=== PATIENT | male | born 1955 | race Caucasian/White ===

== ENCOUNTER 2016-03-23 06:12 | Day surgery (SDC) | payer OTHER ==
[2016-03-22 11:49] VITALS: BMI 39.7
[~2016-03-23 06:12] MED LIST: ALPRAZolam 0.25 MG TAB PO PRN; ASPIRIN 325 MG TAB PO ONE; SODIUM CHLORIDE 0.9% 1,000 ML in EMPTY BAG 1 BAG IV ONE
[2016-03-23 06:49] LABS: Basophils # (A) 0.1 k/uL (0-0.2); Basophils % (A) 1 %; CH 31.4; CHCM 34.6; Eosinophils # (A) 0.3 k/uL (0-0.7); Eosinophils % (A) 6 %; HCT 45.1 % (39.0-53.0); HGB 15.2 gm/dL (13.0-17.5); Luc # (Auto) 0.09; Luc % (Auto) 2; Lymphocytes # (A) 1.1 k/uL (1.0-4.8); Lymphocytes % (A) 20 %; MCH 30.8 pg (25.0-35.0); MCHC 33.8 g/dL (31.0-37.0); MCV 91.2 fL (80.0-100.0); Mean Platelet Volume 7.6; Monocytes # (A) 0.5 k/uL (0-1.0); Monocytes % (A) 8 %; Neutrophils # (A) 3.5 k/uL (1.3-7.7); Neutrophils % (A) 63 %; RBC 4.95 m/uL (4.30-5.90); RDW 14.1 % (11.5-15.5); WBC 5.5 k/uL (3.8-10.6); WBC (Perox) 5.64
[2016-03-23 06:58] LABS: Anion Gap 12 mmol/L; Blood Urea Nitrogen 14 mg/dL (9-20); Calcium 8.8 mg/dL (8.4-10.2); Carbon Dioxide 26 mmol/L (22-30); Chloride 107 mmol/L (98-107); Glucose 129 mg/dL (74-99); Non-African American GFR(MDRD) >60 (>60 ml/min/1.73 sqM); Potassium 4.6 mmol/L (3.5-5.1); Sodium 145 mmol/L (137-145)
[2016-03-23] MEDS ORDERED: MIDAZOLAM 2 MG/2 ML VIAL ONE (07:19)
[2016-03-23] MEDS ORDERED: SODIUM CHLORIDE 0.9% (PF) 10 ML VIAL ONE (07:19)
[2016-03-23] MEDS ORDERED: diphenhydrAMINE 50 MG/ML 1 ML VIAL ONE (07:19)
[2016-03-23] MEDS ORDERED: VERAPAMIL 2.5 MG/ML 2 ML AMP ONE (07:19)
[2016-03-23] MEDS ORDERED: diphenhydrAMINE 50 MG/ML 1 ML VIAL IVP ONE (07:27)
[2016-03-23] MEDS ORDERED: MIDAZOLAM 2 MG/2 ML VIAL IVP ONE (07:28)
[2016-03-23] MEDS ORDERED: LIDOCAINE 2% INJ 20 MG/ML SQ ONE (07:31)
[2016-03-23] MEDS: VERAPAMIL SYRINGE (5 MG/10 ML) INTRAARTER ONE ×2 (07:33→08:38)
[2016-03-23] MEDS ORDERED: HEPARIN SODIUM 1,000 UNIT/ML VIAL ONE (07:33)
[2016-03-23] MEDS ORDERED: HEPARIN SODIUM 1,000 UNIT/ML VIAL IV ONE (07:34)
[2016-03-23] MEDS ORDERED: BIVALIRUDIN BOLUS 250 MG/50 ML IV ONE (07:53)
[2016-03-23] MEDS ORDERED: BIVALIRUDIN 250 MG in SODIUM CHLORIDE 0.9% 50 ML IV ONE ×2 (07:54→08:24)
[2016-03-23] MEDS ORDERED: CLOPIDOGREL 75 MG TAB ONE ×2 (08:12→08:13)
[2016-03-23] MEDS: NITROGLYCERIN 1000MCG/10ML SYRINGE INTRACORON ONE ×2 (08:13→08:35)
[2016-03-23] MEDS ORDERED: CLOPIDOGREL 75 MG TAB PO ONE (08:28)
[2016-03-23] MEDS ORDERED: IOHEXOL 350 MG/ML 100 ML BOTTLE INJ ONE (08:41)
[2016-03-23] MEDS ORDERED: NITROGLYCERIN SL TABS 0.4 MG TAB SUBLINGUAL PRN (08:44)
[2016-03-23] MEDS ORDERED: RX INFO: IV CONTRAST WAS GIVEN 1 EACH MISC MISCELLANE PRN (08:44)
[2016-03-23] MEDS ORDERED: ATROPINE SULFATE 0.1 MG/ML 10ML SYRINGE IV PRN (08:44)
[2016-03-23] MEDS ORDERED: MAG HYDROX/AL HYDROX/SIMETH 30 ML CUP PO PRN (08:44)
--- NOTE | 2016-03-23 10:26 | CC ---
DATE OF SERVICE: 03/23/2016 PROCEDURE: Left heart catheterization and coronary angiography. Performed by Dr. Shalini Otero. CLINICAL INFORMATION: Mr. Rafael Lord is a 60-year-old obese gentleman with history of hypertension, hypercholesterolemia and known CAD, previous circumflex PCI performed in 2005. At that time he had moderate distal RCA disease. He was doing well on medical therapy but came in for a stress test, which revealed inferolateral ischemia and significant ventricular ectopy on the treadmill. He was therefore advised cardiac catheterization. Risks, benefits, options, rationale were discussed at length with the patient. PROCEDURE NOTE: Under local anesthesia and strict aseptic precautions, a 6 Grenadian introducer was placed in the right radial artery. Using an Ultima 2 catheter, I performed selective coronary angiography of the left system. A JR4 catheter was used to perform selective coronary angiography of the RCA. I checked LV pressures with a pigtail catheter, but did not perform an LV gram. The circumflex that was stented in 2005 was widely patent with no more than 30% stenosis. There was some progression of disease in the circumflex PLV branch beyond the circumflex marginal. This is almost a codominant system. Technically though the right coronary seems to be a dominant vessel. I then proceeded to perform intervention in the same setting. CORONARY ANGIOGRAPHY FINDINGS: HEMODYNAMICS: The left ventricular end-diastolic pressure was about 12 mmHg and there was no gradient across aortic valve. Left ventriculogram was not performed. CORONARY ANGIOGRAPHIC FINDINGS: RIGHT CORONARY ARTERY: It was technically a dominant vessel that has no significant disease in the proximal portion, in the distal aspect before bifurcation there is a long, tubular 80% stenosis after which the vessel bifurcates into PDA and PLV. The distal RCA lesion is quite significant and the PLV is a smaller vessel, has no significant disease, but the PDA also has a 70% to 80% stenosis. This is best seen in the caudal projection. The RCA is a dominant vessel. LEFT MAIN CORONARY ARTERY: A short, patent, disease-free vessel that bifurcates into LAD and circumflex. LEFT ANTERIOR DESCENDING CORONARY ARTERY: A good caliber vessel extends along the anterior wall, gives off septal and diagonal branches, runs all the way to the apex and curves over the apex to supply the inferoapical lateral portion of the left ventricle. There is no significant disease in the RCA. LEFT POSTERIOR CIRCUMFLEX CORONARY ARTERY: Technically, a nondominant, yet good distribution vessel; gives off a large obtuse marginal, then there is stented segment which is widely patent. After the obtuse marginal, there is mild diffuse disease in the circumflex up to 30% to 35% but the stented segment is widely patent and it bifurcates distally into two small branches. The stented segment in the circumflex is widely patent. LEFT VENTRICULOGRAM: This was not performed. FINAL IMPRESSION: 1. This patient has widely patent circumflex at the site of previous stenting. The right coronary artery has a significant disease in the distal aspect of 80% and also the PDA branch has 80% stenosis beyond the bifurcation. 2. Left ventriculogram was not performed and left ventricular pressures are normal. RECOMMENDATION: I recommended intervention of the RCA and proceeded to perform this in the same setting.
--- NOTE | 2016-03-23 10:31 | PTCA ---
DATE OF SERVICE: PROCEDURE: PTCA and stenting of distal RCA and PDA branch of RCA with drug-eluting stents. Performed by Dr. Shalini Otero. PROCEDURE NOTE: Existing 6 Belizean introducer in the right radial artery was used to perform the procedure. I used a KR catheter to cannulate the RCA, BMW wire was used to cross the lesion. Predilatation of the distal RCA was performed using a 15 mm long, 2.5 caliber Trek balloon. This area was stented with an 18 mm long, 3.0 caliber Xience stent with excellent result. I then noted that the PDA lesion was quite significant, almost up to 90%. I repositioned the wire in the distal aspect of the PDA, predilated it with a 2.5 caliber, 12 mm long Trek balloon and then deployed a 2.5 caliber, 12 mm long Xience stent in the PDA vessel. Excellent angiographic result was achieved without complication. Patient did not have much chest discomfort, but mild ST elevation in the inferior leads. He received Angiomax bolus and infusion as per protocol. He also received 600 mg of Plavix. Excellent angiographic result was achieved without complication. TR band was applied as per protocol with a good saturation of the fingers of the right hand and patient was sent to the room in stable condition and results were discussed with the patient and his . Excellent angiographic result without complication was noted. I expect the patient will be discharged tomorrow.
--- NOTE | 2016-03-23 10:34 | LTR ---
March 23, 2016 RE: Rafael Lord Dear Dr. Burr; Thank you for the opportunity to participate in the care of Mr. Lord. I am pleased to report to you that he had an excellent angiographic result. I expect that he will be discharged later on today or early tomorrow if he remains stable. Thank you for your referral and please call for questions. With kindest regards. Sincerely yours, TIA LAUREANO MD
[2016-03-23] MEDS: ASPIRIN 81 MG CHEW PO SCH (11:12)
[2016-03-23] MEDS: amLODIPine 5 MG TAB PO SCH ×2 (11:12→20:57)
[2016-03-23] MEDS: SODIUM CHLORIDE 0.9% 1,000 ML IV SCH ×2 (11:12→20:57)
[2016-03-23] MEDS: LISINOPRIL 20 MG TAB PO SCH (11:13)
[2016-03-23] MEDS: ATENOLOL 50 MG TAB PO SCH ×2 (11:13→20:57)
[2016-03-23] MEDS ORDERED: ZOLPIDEM 5 MG TAB PO PRN (21:00)
[2016-03-23] MEDS ORDERED: ATORVASTATIN 80 MG TAB PO SCH (21:00)
[2016-03-24 06:28] LABS: Basophils # (A) 0.1 k/uL (0-0.2); Basophils % (A) 1 %; CH 31.3; CHCM 34.2; Eosinophils # (A) 0.3 k/uL (0-0.7); Eosinophils % (A) 5 %; HCT 45.1 % (39.0-53.0); HDW 2.84; HGB 14.6 gm/dL (13.0-17.5); Luc # (Auto) 0.11; Luc % (Auto) 2; Lymphocytes % (A) 18 %; MCH 29.8 pg (25.0-35.0); MCHC 32.4 g/dL (31.0-37.0); Mean Platelet Volume 7.6; Monocytes # (A) 0.4 k/uL (0-1.0); Monocytes % (A) 7 %; Neutrophils % (A) 67 %; RBC 4.91 m/uL (4.30-5.90); RDW 14.1 % (11.5-15.5); WBC 5.9 k/uL (3.8-10.6); WBC (Perox) 5.93
[2016-03-24 06:51] LABS: Anion Gap 12 mmol/L; Blood Urea Nitrogen 14 mg/dL (9-20); Carbon Dioxide 28 mmol/L (22-30); Chloride 103 mmol/L (98-107); Glucose 127 mg/dL (74-99); Non-African American GFR(MDRD) >60 (>60 ml/min/1.73 sqM); Potassium 3.9 mmol/L (3.5-5.1); Sodium 143 mmol/L (137-145)
[2016-03-24 08:17] VITALS: BP 149/73; PULSE 73; RESP 16; TEMP 97.3
[2016-03-24] MEDS: ATENOLOL 50 MG TAB PO SCH (08:51)
[2016-03-24] MEDS: LISINOPRIL 20 MG TAB PO SCH (08:52)
[2016-03-24] MEDS: ASPIRIN 81 MG CHEW PO SCH (08:52)
[2016-03-24] MEDS: amLODIPine 5 MG TAB PO SCH (08:52)
--- NOTE | 2016-03-24 08:58 | DS ---
DATE OF ADMISSION: 03/23/2016 DATE OF DISCHARGE: 03/24/2016 DIAGNOSIS: Unstable angina. PROCEDURES PERFORMED: Left heart catheterization and PTCA and stenting of distal RCA and PDA branch of RCA with drug-eluting stents. Mr. Lord was brought in electively for a cardiac cath and possible PCI for abnormal stress test. PTCA and stenting of distal RCA and proximal portion of the PDA branch of RCA were performed. Two drug-eluting stents were deployed. His previously stented mid circumflex was widely patent. His postprocedure course was uneventful. His labs and EKG were unremarkable. Blood pressure was 120/70, pulse rate 70 per minute. The right radial cath site was clean and dry with a good pulse. S1, S2 are heard normally. Lungs are clear. Abdomen and lower extremity exam was unchanged. EKG was unremarkable. Discharge instructions regarding activity, diet, medications were given and patient will be discharged today if he remains stable.
[2016-03-24] MEDS ORDERED: CLOPIDOGREL 75 MG TAB PO SCH (09:00)
== END 2016-03-24 09:59 | disposition home or self-care (01) ==
LOC: CATHCVL 06:12 → 6SEL 08:38 → CATHCVL 03-24 09:59
PROVIDERS: ATTEND Internal Medicine Interventional Cardiology
DX: I25.110 Atherosclerotic heart disease of native coronary artery with unstable angina pectoris (principal); R94.39 Abnormal result of other cardiovascular function study; Z95.5 Presence of coronary angioplasty implant and graft; E78.00 Pure hypercholesterolemia, unspecified; E78.5 Hyperlipidemia, unspecified; I10 Essential (primary) hypertension; I51.7 Cardiomegaly; I08.1 Rheumatic disorders of both mitral and tricuspid valves; Z79.82 Long term (current) use of aspirin; Z79.899 Other long term (current) drug therapy; Z87.891 Personal history of nicotine dependence
CPT/HCPCS: 93458; 80048 ×2; 85025 ×2; C9600; C9601; C1769; C1887; C1725 ×2; C1874; C1894; J2001; J2250; J1200; Q9967; J1644; J0583

== ENCOUNTER → 2016-05-18 | Outpatient (CLI) | payer OTHER ==
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
== END | disposition home or self-care (01) ==
LOC: RADXRMAIN 17:17
PROVIDERS: ATTEND Emergency Medicine
DX: S80.12XA Contusion of left lower leg, initial encounter (principal)

== ENCOUNTER → 2016-05-24 | Outpatient (CLI) | payer OTHER ==
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
== END | disposition home or self-care (01) ==
LOC: RADUSMAIN 16:43
PROVIDERS: ATTEND Family Medicine
DX: M71.22 Synovial cyst of popliteal space [Baker], left knee (principal); S89.92XA Unspecified injury of left lower leg, initial encounter

== ENCOUNTER → 2018-10-25 | Outpatient (CLI) | payer OTHER ==
--- NOTE | 2018-10-25 09:27 | US ---
EXAMINATION TYPE: US liver DATE OF EXAM: 10/25/2018 COMPARISON: CT, US 2016 CLINICAL HISTORY: N28.9 disorder of kidney. EXAM MEASUREMENTS: Liver Length: 18.5 cm Gallbladder Wall: Surgically absent cm CBD: 0.4 cm Right Kidney: 12.5 x 5.9 x 5.2 cm Pancreas: Obscured by bowel gas Liver: Partially obscured by overlying bowel gas. There is increased echogenicity of the hepatic par enchyma with diminished visualization of the portal triads most commonly relating to hepatic steatosi s and limiting evaluation for underlying hepatic masses. Gallbladder: Surgically absent Evidence for sonographic Rockwell's sign: No CBD: wnl Right Kidney: Mid/Lower pole cyst = 1.9 x 1.6 x 1.3 cm IMPRESSION: 1. Sonographic findings most commonly related to hepatic steatosis appearing overall moderate in degr ee. Correlate with liver function tests. 2. Simple appearing 1.9 cm right renal cyst is seen.
== END ==
LOC: RADUSWWP 07:10
PROVIDERS: ATTEND Family Medicine
DX: N28.1 Cyst of kidney, acquired (principal)
CPT/HCPCS: 76705

== ENCOUNTER 2019-01-10 16:10 | Emergency (ER) | payer OTHER ==
[2019-01-10 16:19] VITALS: PULSE 70; RESP 18; TEMP 98.3
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
[2019-01-10] MEDS ORDERED: ACET/COD 300 MG/30 MG STARTER PACK 6 TAB BTL PO STA (18:39)
[2019-01-10] MEDS ORDERED: ONDANSETRON 4 MG ODT STARTER PACK 2 TAB BTL PO STA (18:39)
[2019-01-10] MEDS ORDERED: ONDANSETRON ODT 4 MG TAB PO STA (18:39)
[2019-01-10] MEDS ORDERED: Acetaminophen-Codeine 300-30mg TAB PO STA (18:39)
[2019-01-10] MEDS ORDERED: IBUPROFEN 600 MG TAB PO STA (18:39)
[2019-01-10 18:53] VITALS: BP 140/88
== END 2019-01-10 18:49 | disposition home or self-care (01) ==
LOC: EC 16:10
DX: S06.0X0A Concussion without loss of consciousness, initial encounter (principal); S00.12XA Contusion of left eyelid and periocular area, initial encounter; I10 Essential (primary) hypertension; G47.30 Sleep apnea, unspecified; Z87.891 Personal history of nicotine dependence; Z79.899 Other long term (current) drug therapy; Z99.89 Dependence on other enabling machines and devices; V48.5XXA Car driver injured in noncollision transport accident in traffic accident, initial encounter; Y92.410 Unspecified street and highway as the place of occurrence of the external cause; Y99.0 Civilian activity done for income or pay
CPT/HCPCS: 72125; 70486; 70450; 99284; S0119

== ENCOUNTER → 2019-01-11 | Outpatient (CLI) | payer OTHER ==
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
== END | disposition home or self-care (01) ==
LOC: RADXRMAIN 13:53
PROVIDERS: ATTEND Emergency Medicine
DX: M51.37 Other intervertebral disc degeneration, lumbosacral region (principal); M51.36 Other intervertebral disc degeneration, lumbar region; M51.34 Other intervertebral disc degeneration, thoracic region; M41.86 Other forms of scoliosis, lumbar region; M16.0 Bilateral primary osteoarthritis of hip
CPT/HCPCS: 72072; 72100; 72170

== ENCOUNTER → 2019-01-22 | Outpatient (CLI) | payer OTHER ==
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
== END | disposition home or self-care (01) ==
LOC: RADUSWWP 12:15
PROVIDERS: ATTEND Emergency Medicine
DX: S20.20XD Contusion of thorax, unspecified, subsequent encounter (principal); M79.662 Pain in left lower leg

== ENCOUNTER 2020-02-06 15:39 | Emergency (ER) | payer OTHER ==
[2020-02-06 15:51] VITALS: RESP 18; TEMP 97.9
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
[2020-02-06 17:20] VITALS: BP 148/84; PULSE 82
== END 2020-02-06 17:20 | disposition home or self-care (01) ==
LOC: EC 15:39
DX: M79.602 Pain in left arm (principal); I10 Essential (primary) hypertension; E78.5 Hyperlipidemia, unspecified; K21.9 Gastro-esophageal reflux disease without esophagitis; G47.30 Sleep apnea, unspecified; Z79.84 Long term (current) use of oral hypoglycemic drugs; Z79.899 Other long term (current) drug therapy; Z99.89 Dependence on other enabling machines and devices
CPT/HCPCS: 72070; 99283

== ENCOUNTER → 2021-09-03 | Outpatient (CLI) | payer MEDICARE ==
--- NOTE | 2021-09-03 14:03 | US ---
EXAMINATION TYPE: US venous doppler duplex LE RT DATE OF EXAM: 09/03/2021 1:50 PM COMPARISON: NONE CLINICAL HISTORY: M79.604 Pain right leg. Right leg pain SIDE PERFORMED: Right TECHNIQUE: The lower extremity deep venous system is examined utilizing real time linear array sonog angel with graded compression, doppler sonography and color-flow sonography. VESSELS IMAGED: Common Femoral Vein Deep Femoral Vein Greater Saphenous Vein * Femoral Vein Popliteal Vein Small Saphenous Vein * Proximal Calf Veins (* superficial vessels) Right Leg: Appears negative for DVT Grayscale, color doppler, spectral doppler imaging performed of the deep veins of the lower extremiti es. There is normal flow, compressibility, vascular waveforms. Scattered streaky subcutaneous changes edema is present. IMPRESSION: 1. No evidence of DVT of the right lower extremity. 2. Right lower extremity edema.
== END | disposition home or self-care (01) ==
LOC: RADUSWWP 13:22
PROVIDERS: ATTEND Family Medicine
DX: R22.41 Localized swelling, mass and lump, right lower limb (principal)

== ENCOUNTER → 2022-09-28 | Outpatient (CLI) | payer MEDICARE ==
--- NOTE | 2022-09-28 16:00 | US ---
EXAMINATION TYPE: US pelvic limited DATE OF EXAM: 09/28/2022 COMPARISON: NONE CLINICAL INDICATION: Male, 67 years old with history of N40.0 BENIGN PROSTATIC HYPERPLASIA; BPH frequ ent urination TECHNIQUE: Multiple sonographic images of the bladder obtained before and after voiding. FINDINGS: No gross abnormality of the initially distended bladder. Pre Void: 11.0 x 7.2 x 7.7 cm Volume 426.09 ml Post Void: 8.9 x 4.4 x 6.4 cm Volume 130.82 ml IMPRESSION: Increased post void bladder volume of 131 mL compatible with urinary retention.
== END | disposition home or self-care (01) ==
LOC: RADUSWWP 09:57
PROVIDERS: ATTEND Family Medicine
DX: N40.1 Benign prostatic hyperplasia with lower urinary tract symptoms (principal)
CPT/HCPCS: 76857

== ENCOUNTER 2023-09-08 10:40 | Emergency (ER) | payer MEDICARE ==
[2023-09-08 10:47] VITALS: RESP 18; TEMP 97.3
--- NOTE | 2023-09-08 11:44 | ED ---
General Adult HPI - General Chief complaint: Dizziness Stated complaint: dizzy/nauseous/sweating Time Seen by Provider: 09/08/23 11:01 Source: patient Mode of arrival: wheelchair Limitations: no limitations - History of Present Illness Initial comments: 68-year-old male presents to the emergency department reporting dizziness. States his symptoms were sudden onset around 2030 this morning. He moved his head to the side and had rapid onset of room spinning sensation. He felt nauseated and started sweating. Patient states he tried to lay down and this made his symptoms minimally better. He does report to a history of vertigo but states this does feel different for him. He has a history of a head injury with possible brain bleed for which he was medically followed for a while until it was determined that the patient was stable. Patient denies any head injury. No hearing changes. No chest pain or difficulty breathing. Denies any unilateral numbness or weakness. Symptoms are gone at this time. No other alleviating, precipitating or modifying factors - Related Data Home Medications Medication Instructions Recorded Confirmed atenoloL [Tenormin] 50 mg PO BID 09/07/15 09/08/23 amLODIPine BESYLATE [Norvasc] 5 mg PO BID 03/22/16 09/08/23 Atorvastatin [Lipitor] 40 mg PO HS 02/06/20 09/08/23 Fosinopril Sodium [Monopril] 20 mg PO DAILY 02/06/20 09/08/23 Omeprazole 20 mg PO DAILY 02/06/20 09/08/23 metFORMIN HCL [Glucophage] 500 mg PO DAILY 02/06/20 09/08/23 Tamsulosin [Flomax] 0.4 mg PO HS 09/08/23 09/08/23 Previous Rx's Medication Instructions Recorded Aspirin 81 mg PO HS #90 03/24/16 Allergies Allergy/AdvReac Type Severity Reaction Status Date / Time No Known Allergies Allergy Verified 09/08/23 13:22 Review of Systems ROS Statement: Those systems with pertinent positive or pertinent negative responses have been documented in the HPI. ROS Other: All systems not noted in ROS Statement are negative. Past Medical History Past Medical History: GERD/Reflux, Hyperlipidemia, Hypertension, Prostate Di sorder, Sleep Apnea/CPAP/BIPAP Additional Past Medical History / Comment(s): hx kidney stones, pancreatitis-had cholecystectomy, "borderline diabetic"- just started checking blood sugars, BPH. History of Any Multi-Drug Resistant Organisms: None Reported Past Surgical History: Cholecystectomy, Heart Catheterization With Stent, Tonsillectomy Additional Past Surgical History / Comment(s): 03/23/16 PCI with stent to RCA and PDA. Other surgical hx: Cardiac cath with stent to LCX 2005, [employer] RE MOVED LT KNEE Past Anesthesia/Blood Transfusion Reactions: No Reported Reaction Date of Last Stent Placement:: 03/23/16 Past Psychological History: No Psychological Hx Reported Smoking Status: Never smoker Past Alcohol Use History: None Reported Past Drug Use History: Marijuana - Past Family History Father Family Medical History: Cancer Additional Family Medical History / Comment(s): Father had a MS in his late 60's. He of multiple myeloma at the age of 73yrs. Mother Family Medical History: No Reported History Additional Family Medical History / Comment(s): Mother is 79 or 80 yrs old. General Exam Limitations: no limitations General appearance: alert, in no apparent distress Head exam: Present: atraumatic, normocephalic, normal inspection Eye exam: Present: normal appearance, PERRL, EOMI. Absent: scleral icterus, conjunctival injection, periorbital swelling ENT exam: Present: normal exam, mucous membranes moist Neck exam: Present: normal inspection. Absent: tenderness, meningismus, lymphadenopathy Respiratory exam: Present: normal lung sounds bilaterally. Absent: respiratory distress, wheezes, rales, rhonchi, stridor Cardiovascular Exam: Present: regular rate, normal rhythm, normal heart sounds. Absent: systolic murmur, diastolic murmur, rubs, gallop, clicks GI/Abdominal exam: Present: soft, normal bowel sounds. Absent: distended, tenderness, guarding, rebound, rigid Extremities exam: Present: normal inspection, full ROM, normal capillary refill. Absent: tenderness, pedal edema, joint swelling, calf tenderness Back exam: Present: normal inspection Neurological exam: Present: alert, oriented X3, CN II-XII intact Psychiatric exam: Present: normal affect, normal mood Skin exam: Present: warm, dry, intact, normal color. Absent: rash Course Vital Signs 09/08/23 09/08/23 10:43 15:11 Temperature 97.3 F L Pulse Rate 59 L 65 Respiratory 18 18 Rate Blood Pressure 140/89 126/78 O2 Sat by Pulse 96 98 Oximetry Medical Decision Making - Medical Decision Making Was pt. sent in by a medical professional or institution (, PA, SALESFORCE ADMINISTRATOR, urgent care, hospital, or fdc...) When possible be specific @ -No Did you speak to anyone other than the patient for history (EMS, parent, family, police, friend...)? What history was obtained from this source @ -Spoke with for history Did you review nursing and triage notes (agree or disagree)? Why? @ -I reviewed and agree with nursing and triage notes Were old charts reviewed (outside hosp., previous admission, EMS record, old EKG, old radiological studies, urgent care reports/EKG's, fdc records)? Report findings @ -No old charts were reviewed Differential Diagnosis (chest pain, altered mental status, abdominal pain women, abdominal pain men, vaginal bleeding, weakness, fever, dyspnea, syncope, headache, dizziness, GI bleed, back pain, seizure, CVA, palpatations, mental health, musculoskeletal)? @ -CVA, vertigo, brain bleed, MS EKG interpreted by me (3pts min.). @ -yes and demonstrates sinus bradycardia with a rate of 54. TX interval 206. QRS 124. QTC of 425. No acute ST segment elevations or depressions X-rays interpreted by me (1pt min.). @ -None done CT interpreted by me (1pt min.). @ -Yes and demonstrates no acute process U/S interpreted by me (1pt. min.). @ -None done What testing was considered but not performed or refused? (CT, X-rays, U/S, labs)? Why? @ -None What meds were considered but not given or refused? Why? @ -Meclizine however patient is asymptomatic at this time Did you discuss the management of the patient with other professionals (professionals i.e. , PA, SALESFORCE ADMINISTRATOR, lab, RT, psych nurse, social media executive, risk manager, teacher, casino surveillance officer, clinical case manager)? Give summary @ -No Was smoking cessation discussed for >3mins.? @ -No Was critical care preformed (if so, how long)? @ -No Were there social determinants of health that impacted care today? How? (H omelessness, low income, unemployed, alcoholism, drug addiction, transportation, low edu. Level, literacy, decrease access to med. care, nursing home, rehab)? @ -No Was there de-escalation of care discussed even if they declined (Discuss DNR or withdrawal of care, Hospice)? DNR status @ -No What co-morbidities impacted this encounter? (DM, HTN, Smoking, COPD, CAD, Cancer, CVA, ARF, Chemo, Hep., AIDS, mental health diagnosis, sleep apnea, morbid obesity)? @ -Head injury with possible brain bleed Was patient admitted / discharged? Hospital course, mention meds given and route, prescriptions, significant lab abnormalities, going to OR and other pertinent info. @ -Upon arrival patient seen and evaluated in room 9. Thorough history and physical exam was performed. Patient placed on continuous pulse ox and cardiac monitoring. Twelve-lead EKG is obtained. Laboratory studies are conducted. CT of the head was performed. Upon return the results are discussed with the patient. I did request that a second troponin be completed which was also negative. Patient wants to go home at this time as he is asymptomatic. I discussed the diagnosis, differential and treatment options. At this time the patient be discharged home. Instructed to follow-up with his primary care doctor. Return for any new or worsening symptoms. Patient agreeable to plan was discharged in stable condition Undiagnosed new problem with uncertain prognosis? @ -Yes Drug Therapy requiring intensive monitoring for toxicity (Heparin, Nitro, Insulin, Cardizem)? @ -No Were any procedures done? @ -No Diagnosis/symptom? @ -Acute vertigo Acute, or Chronic, or Acute on Chronic? @ -Acute Uncomplicated (without systemic symptoms) or Complicated (systemic symptoms)? @ -Complicated Side effects of treatment? @ -No Exacerbation, Progression, or Severe Exacerbation? @ -No Poses a threat to life or bodily function? How? (Chest pain, USA, MS, pneumonia, PE, COPD, DKA, ARF, appy, cholecystitis, CVA, Diverticulitis, Homicidal, Suicidal, threat to staff... and all critical care pts) @ -No - Lab Data Result diagrams: 09/08/23 12:00 09/08/23 12:00 Lab Results 09/08/23 09/08/23 09/08/23 Range/Units 12:00 12:00 12:00 WBC 6.2 (3.8-10.6) k/uL RBC 5.00 (4.30-5.90) m/uL Hgb 15.6 (13.0-17.5) gm/dL Hct 47.0 (39.0-53.0) % MCV 94.0 (80.0-100.0) fL MCH 31.3 (25.0-35.0) pg MCHC 33.3 (31.0-37.0) g/dL RDW 13.1 (11.5-15.5) % Plt Count 207 (150-450) k/uL MPV 7.1 Neutrophils % 76 % Lymphocytes % 12 % Monocytes % 5 % Eosinophils % 5 % Basophils % 1 % Neutrophils # 4.7 (1.3-7.7) k/uL Lymphocytes # 0.7 L (1.0-4.8) k/uL Monocytes # 0.3 (0-1.0) k/uL Eosinophils # 0.3 (0-0.7) k/uL Basophils # 0.1 (0-0.2) k/uL Sodium 142 (137-145) mmol/L Potassium 3.4 L (3.5-5.1) mmol/L Chloride 107 (98-107) mmol/L Carbon Dioxide 28 (22-30) mmol/L Anion Gap 7 mmol/L BUN 18 (9-20) mg/dL Creatinine 0.98 (0.66-1.25) mg/dL Est GFR (CKD-EPI)AfAm >90 (>60 ml/min/1.73 sqM) Est GFR (CKD-EPI)NonAf 80 (>60 ml/min/1.73 sqM) Glucose 118 H (74-99) mg/dL Plasma Lactic Acid Nico (0.7-2.0) mmol/L Calcium 9.2 (8.4-10.2) mg/dL Total Bilirubin 2.2 H (0.2-1.3) mg/dL AST 39 (17-59) U/L ALT 36 (4-49) U/L Alkaline Phosphatase 106 (38-126) U/L Troponin I (0.000-0.034) ng/mL Total Protein 6.7 (6.3-8.2) g/dL Albumin 4.2 (3.5-5.0) g/dL Urine Color Light Yellow Urine Appearance Clear (Clear) Urine pH 6.0 (5.0-8.0) Ur Specific [place] 1.017 (1.001-1.035) Urine Protein Negative (Negative) Urine Glucose (UA) Negative (Negative) Urine Ketones Negative (Negative) Urine Blood Negative (Negative) Urine Nitrite Negative (Negative) Urine Bilirubin Negative (Negative) Urine Urobilinogen <2.0 (<2.0) mg/dL Ur Leukocyte Esterase Negative (Negative) 09/08/23 09/08/23 09/08/23 Range/Units 12:00 12:00 13:58 WBC (3.8-10.6) k/uL RBC (4.30-5.90) m/uL Hgb (13.0-17.5) gm/dL Hct (39.0-53.0) % MCV (80.0-100.0) fL MCH (25.0-35.0) pg MCHC (31.0-37.0) g/dL RDW (11.5-15.5) % Plt Count (150-450) k/uL MPV Neutrophils % % Lymphocytes % % Monocytes % % Eosinophils % % Basophils % % Neutrophils # (1.3-7.7) k/uL Lymphocytes # (1.0-4.8) k/uL Monocytes # (0-1.0) k/uL Eosinophils # (0-0.7) k/uL Basophils # (0-0.2) k/uL Sodium (137-145) mmol/L Potassium (3.5-5.1) mmol/L Chloride (98-107) mmol/L Carbon Dioxide (22-30) mmol/L Anion Gap mmol/L BUN (9-20) mg/dL Creatinine (0.66-1.25) mg/dL Est GFR (CKD-EPI)AfAm (>60 ml/min/1.73 sqM) Est GFR (CKD-EPI)NonAf (>60 ml/min/1.73 sqM) Glucose (74-99) mg/dL Plasma Lactic Acid Nico 1.1 (0.7-2.0) mmol/L Calcium (8.4-10.2) mg/dL Total Bilirubin (0.2-1.3) mg/dL AST (17-59) U/L ALT (4-49) U/L Alkaline Phosphatase (38-126) U/L Troponin I <0.012 <0.012 (0.000-0.034) ng/mL Total Protein (6.3-8.2) g/dL Albumin (3.5-5.0) g/dL Urine Color Urine Appearance (Clear) Urine pH (5.0-8.0) Ur Specific [place] (1.001-1.035) Urine Protein (Negative) Urine Glucose (UA) (Negative) Urine Ketones (Negative) Urine Blood (Negative) Urine Nitrite (Negative) Urine Bilirubin (Negative) Urine Urobilinogen (<2.0) mg/dL Ur Leukocyte Esterase (Negative) Disposition Clinical Impression: Vertigo Disposition: HOME SELF-CARE Condition: Stable Instructions (If sedation given, give patient instructions): Dizziness (ED) Additional Instructions: please follow-up with your primary care doctor and return for any new or worsening symptoms Is patient prescribed a controlled substance at d/c from ED?: No Referrals: Santi Burr DO [Primary Care Provider] - 1-2 days Time of Disposition: 14:47
[2023-09-08] MEDS: SODIUM CHLORIDE 0.9% 500 ML 500 ML IV STA (12:07)
[2023-09-08 12:18] LABS: Basophils # (A) 0.1 k/uL (0-0.2); Basophils % (A) 1 %; Eosinophils # (A) 0.3 k/uL (0-0.7); Eosinophils % (A) 5 %; HGB 15.6 gm/dL (13.0-17.5); Lymphocytes # (A) 0.7 k/uL (1.0-4.8); Lymphocytes % (A) 12 %; MCH 31.3 pg (25.0-35.0); MCHC 33.3 g/dL (31.0-37.0); Mean Platelet Volume 7.1; Monocytes # (A) 0.3 k/uL (0-1.0); Monocytes % (A) 5 %; Neutrophils # (A) 4.7 k/uL (1.3-7.7); Neutrophils % (A) 76 %; Platelet Count 207 k/uL (150-450); RDW 13.1 % (11.5-15.5); WBC 6.2 k/uL (3.8-10.6)
[2023-09-08 12:29] LABS: ALT 36 U/L (4-49); AST 39 U/L (17-59); African American GFR (CKD) >90 (>60 ml/min/1.73 sqM); Albumin 4.2 g/dL (3.5-5.0); Alkaline Phosphatase 106 U/L (38-126); Anion Gap 7 mmol/L; Blood Urea Nitrogen 18 mg/dL (9-20); Calcium 9.2 mg/dL (8.4-10.2); Carbon Dioxide 28 mmol/L (22-30); Chloride 107 mmol/L (98-107); Glucose 118 mg/dL (74-99); Non-African American GFR(CKD) 80 (>60 ml/min/1.73 sqM); Potassium 3.4 mmol/L (3.5-5.1); Sodium 142 mmol/L (137-145); Total Bilirubin 2.2 mg/dL (0.2-1.3); Total Protein 6.7 g/dL (6.3-8.2)
--- NOTE | 2023-09-08 12:34 | XR ---
EXAMINATION TYPE: XR chest 2V DATE OF EXAM: 09/08/2023 12:29 PM COMPARISON: Chest radiographs from 02/06/2020 TECHNIQUE: XR chest 2V Frontal and lateral views of the chest. CLINICAL INDICATION:Male, 68 years old with history of near syncope; FINDINGS: Lungs/Pleura: There is no evidence of pleural effusion, focal consolidation, or pneumothorax. Pulmonary vascularity: Unremarkable. Heart/mediastinum: Cardiomediastinal silhouette is unremarkable. Musculoskeletal: No acute osseous pathology. Multilevel degenerative disc disease of the thoracic spi ne. IMPRESSION: No acute cardiopulmonary disease/process.
[2023-09-08 13:36] LABS: Appearance,Urine Clear (Clear); Bilirubin,Urine Negative (Negative); Blood,Urine Negative (Negative); Color,Urine Light Yellow; Glucose,Urine (UA) Negative (Negative); Ketones,Urine Negative (Negative); Leukocyte Esterase,Urine Negative (Negative); Nitrite,Urine Negative (Negative); Protein,Urine Negative (Negative); Specific Gravity,Urine 1.017 (1.001-1.035); Urobilinogen,Urine <2.0 mg/dL (<2.0)
--- NOTE | 2023-09-08 13:46 | CT ---
EXAMINATION TYPE: CT brain wo con DATE OF EXAM: 09/08/2023 COMPARISON: 01/10/2019 HISTORY: Vertigo, brain bleed CT DLP: 1213.[address] of the brain was performed. The ventricles, basal cisterns and sulci overlying the cerebral convexities demonstrate mild enlargem ent. There is no evidence for intracranial hemorrhage or sulcal effacement. There is decreased attenuation about the periventricular white matter and deep white matter of both c erebral hemispheres, compatible with chronic small vessel ischemia. Differential diagnosis does inclu de demyelination. No mass effects are seen.No midline shift. Osseous calvarium is intact. Mucosal thickening right maxillary sinus. If symptoms persist consider MRI. IMPRESSION: 1. Age related atrophic and chronic small vessel ischemic change without acute intracranial process s een at this time.
[2023-09-08 15:12] VITALS: BP 126/78; PULSE 65
== END 2023-09-08 15:12 | disposition home or self-care (01) ==
LOC: EC 10:40
DX: R42 Dizziness and giddiness (principal); Z90.49 Acquired absence of other specified parts of digestive tract; Z95.5 Presence of coronary angioplasty implant and graft
CPT/HCPCS: 36415; 70450; 71046; 80053; 81003; 83605; 84484; 85025; 93005; 99284

== ENCOUNTER 2024-02-11 05:46 | Emergency (ER) | payer MEDICARE ==
[2024-02-11 05:53] VITALS: TEMP 97.6
--- NOTE | 2024-02-11 06:21 | ED ---
Abdominal Pain HPI - General Chief Complaint: Abdominal Pain Stated Complaint: Kidney STones Time Seen by Provider: 02/11/24 05:57 Source: patient, RN notes reviewed Mode of arrival: wheelchair Limitations: no limitations - History of Present Illness Initial Comments: 68-year-old male presents emergency department chief complaint of right flank pain. Patient states started yesterday worsened throughout the night he states he is very nauseous and had few episodes of emesis. Patient states that pain is very similar to when he had a kidney stone over 10 years ago. Patient denies any fevers chills chest pain shortness of breath. - Related Data Home Medications Medication Instructions Recorded Confirmed atenoloL [Tenormin] 50 mg PO BID 09/07/15 09/08/23 amLODIPine BESYLATE [Norvasc] 5 mg PO BID 03/22/16 09/08/23 Atorvastatin [Lipitor] 40 mg PO HS 02/06/20 09/08/23 Fosinopril Sodium [Monopril] 20 mg PO DAILY 02/06/20 09/08/23 Omeprazole 20 mg PO DAILY 02/06/20 09/08/23 metFORMIN HCL [Glucophage] 500 mg PO DAILY 02/06/20 09/08/23 Tamsulosin [Flomax] 0.4 mg PO HS 09/08/23 09/08/23 Previous Rx's Medication Instructions Recorded Aspirin 81 mg PO HS #90 03/24/16 Ketorolac [Toradol] 10 mg PO Q8HR #15 tab 02/11/24 Ondansetron Odt [Zofran Odt] 4 mg PO Q8HR PRN #10 tab 02/11/24 Tamsulosin [Flomax] 0.4 mg PO DAILY #7 cap 02/11/24 Allergies Allergy/AdvReac Type Severity Reaction Status Date / Time No Known Allergies Allergy Verified 09/08/23 13:22 Review of Systems ROS Statement: Those systems with pertinent positive or pertinent negative responses have been documented in the HPI. ROS Other: All systems not noted in ROS Statement are negative. Past Medical History Past Medical History: GERD/Reflux, Hyperlipidemia, Hypertension, Prostate Disorder, Sleep Apnea/CPAP/BIPAP Additional Past Medical History / Comment(s): hx kidney stones, pancreatitis-had cholecystectomy, "borderline diabetic"- just started checking blood sugars, BPH. History of Any Multi-Drug Resistant Organisms: None Reported Past Surgical History: Cholecystectomy, Heart Catheterization With Stent, Tonsillectomy Additional Past Surgical History / Comment(s): 03/23/16 PCI with stent to RCA and PDA. Other surgical hx: Cardiac cath with stent to LCX 2005, [facility] REMOVED LT KNEE Past Anesthesia/Blood Transfusion Reactions: No Reported Reaction Date of Last Stent Placement:: 03/23/16 Past Psychological History: No Psychological Hx Reported Smoking Status: Never smoker Past Alcohol Use History: None Reported Past Drug Use History: Marijuana - Past Family History Father Family Medical History: Cancer Additional Family Medical History / Comment(s): Father had a CA in his late 60's. He of multiple myeloma at the age of 73yrs. Mother Family Medical History: No Reported History Additional Family Medical History / Comment(s): Mother is 79 or 80 yrs old. General Exam Limitations: no limitations General appearance: alert, in no apparent distress Head exam: Present: atraumatic, normocephalic, normal inspection Eye exam: Present: normal appearance, PERRL, EOMI. Absent: scleral icterus, conjunctival injection, periorbital swelling Respiratory exam: Present: normal lung sounds bilaterally. Absent: respiratory distress, wheezes, rales, rhonchi, stridor Cardiovascular Exam: Present: regular rate, normal rhythm, normal heart sounds. Absent: systolic murmur, diastolic murmur, rubs, gallop, clicks GI/Abdominal exam: Present: soft, normal bowel sounds. Absent: distended, tenderness, guarding, rebound, rigid Back exam: Absent: CVA tenderness (R), CVA tenderness (L) Neurological exam: Present: alert, oriented X3 Course Vital Signs 02/11/24 05:50 Temperature 97.6 F Pulse Rate 74 Respiratory 18 Rate Blood Pressure 157/90 O2 Sat by Pulse 95 Oximetry Medical Decision Making - Medical Decision Making Was pt. sent in by a medical professional or institution (, PA, POULTRY HUSBANDRY TEACHER, urgent care, hospital, or correction...) When possible be specific @ -No Did you speak to anyone other than the patient for history (EMS, parent, family, police, friend...)? What history was obtained from this source @ -No Did you review nursing and triage notes (agree or disagree)? Why? @ -I reviewed and agree with nursing and triage notes Were old charts reviewed (outside hosp., previous admission, EMS record, old EKG, old radiological studies, urgent care reports/EKG's, correction records)? Report findings @ -No old charts were reviewed Differential Diagnosis (chest pain, altered mental status, abdominal pain women, abdominal pain men, vaginal bleeding, weakness, fever, dyspnea, syncope, headache, dizziness, GI bleed, back pain, seizure, CVA, palpatations, mental health, musculoskeletal)? @ -Differential Abdominal Pain Men: Appendicitis, cholecystitis, diverticulosis, ischemic bowel, pancreatitis, hepatitis, UTI, gastroenteritis, AAA, incarcerated hernia, bowel obstruction, constipation, inflammatory bowel, hepatitis, peptic ulcer disease, splenic infarction, perforated viscus, testicular torsion, this is not meant to be an all-inclusive list EKG interpreted by me (3pts min.). @ -None X-rays interpreted by me (1pt min.). @ -None done CT interpreted by me (1pt min.). @ -CT abdomen pelvis without contrast showing 6 mm ureteral calculus mild hydronephrosis U/S interpreted by me (1pt. min.). @ -None done What testing was considered but not performed or refused? (CT, X-rays, U/S, labs)? Why? @ -None What meds were considered but not given or refused? Why? @ -None Did you discuss the management of the patient with other professionals (professionals i.e. , PA, POULTRY HUSBANDRY TEACHER, lab, RT, psych nurse, social media project manager, cloud automation tester, teacher, founder chairman and chief creative officer, family service caseworker)? Give summary @ -No Was smoking cessation discussed for >3mins.? @ -No Was critical care preformed (if so, how long)? @ -No Were there social determinants of health that impacted care today? How? (Homelessness, low income, unemployed, alcoholism, drug addiction, transportation, low edu. Level, literacy, decrease access to med. care, senior living, rehab)? @ -No Was there de-escalation of care discussed even if they declined (Discuss DNR or withdrawal of care, Hospice)? DNR status @ -No What co-morbidities impacted this encounter? (DM, HTN, Smoking, COPD, CAD, Cancer, CVA, ARF, Chemo, Hep., AIDS, mental health diagnosis, sleep apnea, morbid obesity)? @ -None Was patient admitted / discharged? Hospital course, mention meds given and route, prescriptions, significant lab abnormalities, going to OR and other pertinent info. @ -[Discharge patient feels greatly improved. He will need to follow-up with urology. Patient discharged on Flomax, Toradol, Collins, Zofran. Patient has evidence of ureteral calculus no significant signs of infection or acute kidney injury Undiagnosed new problem with uncertain prognosis? @ -No Drug Therapy requiring intensive monitoring for toxicity (Heparin, Nitro, Insulin, Cardizem)? @ -No Were any procedures done? @ -No Diagnosis/symptom? @ -Ureteral calculus Acute, or Chronic, or Acute on Chronic? @ -Acute Uncomplicated (without systemic symptoms) or Complicated (systemic symptoms)? @ -Uncomplicated Side effects of treatment? @ -No Exacerbation, Progression, or Severe Exacerbation? @ -No Poses a threat to life or bodily function? How? (Chest pain, USA, CA, pneumonia, PE, COPD, DKA, ARF, appy, cholecystitis, CVA, Diverticulitis, Homicidal, Suicidal, threat to staff... and all critical care pts) @ -No - Lab Data Result diagrams: 02/11/24 06:24 02/11/24 06:24 Lab Results 02/11/24 02/11/24 02/11/24 Range/Units 06:24 06:24 06:24 WBC 11.3 H (3.8-10.6) k/uL RBC 5.35 (4.30-5.90) m/uL Hgb 16.5 (13.0-17.5) gm/dL Hct 49.5 (39.0-53.0) % MCV 92.5 (80.0-100.0) fL MCH 30.8 (25.0-35.0) pg MCHC 33.3 (31.0-37.0) g/dL RDW 13.2 (11.5-15.5) % Plt Count 206 (150-450) k/uL MPV 7.4 Neutrophils % 88 % Lymphocytes % 7 % Monocytes % 4 % Eosinophils % 1 % Basophils % 1 % Neutrophils # 9.9 H (1.3-7.7) k/uL Lymphocytes # 0.8 L (1.0-4.8) k/uL Monocytes # 0.4 (0-1.0) k/uL Eosinophils # 0.1 (0-0.7) k/uL Basophils # 0.1 (0-0.2) k/uL Sodium 140 (137-145) mmol/L Potassium 3.6 (3.5-5.1) mmol/L Chloride 105 (98-107) mmol/L Carbon Dioxide 24 (22-30) mmol/L Anion Gap 11 mmol/L BUN 22 H (9-20) mg/dL Creatinine 1.30 H (0.66-1.25) mg/dL Est GFR (CKD-EPI)AfAm 65 (>60 ml/min/1.73 sqM) Est GFR (CKD-EPI)NonAf 56 (>60 ml/min/1.73 sqM) Glucose 184 H (74-99) mg/dL Calcium 9.4 (8.4-10.2) mg/dL Total Bilirubin 1.9 H (0.2-1.3) mg/dL AST 38 (17-59) U/L ALT 36 (4-49) U/L Alkaline Phosphatase 135 H (38-126) U/L Total Protein 7.4 (6.3-8.2) g/dL Albumin 4.8 (3.5-5.0) g/dL Lipase 53 (23-300) U/L Urine Color Colorless Urine Appearance Clear (Clear) Urine pH 6.5 (5.0-8.0) Ur Specific Mathias 1.010 (1.001-1.035) Urine Protein Negative (Negative) Urine Glucose (UA) 1+ H (Negative) Urine Ketones Negative (Negative) Urine Blood Negative (Negative) Urine Nitrite Negative (Negative) Urine Bilirubin Negative (Negative) Urine Urobilinogen <2.0 (<2.0) mg/dL Ur Leukocyte Esterase Negative (Negative) Disposition Clinical Impression: Ureteral calculus, right Disposition: HOME SELF-CARE Condition: Stable Instructions (If sedation given, give patient instructions): Kidney Stones (ED) Additional Instructions: Please return to the Emergency Department if symptoms worsen or any other concerns. Prescriptions: Tamsulosin [Flomax] 0.4 mg PO DAILY #7 cap Ketorolac [Toradol] 10 mg PO Q8HR #15 tab Ondansetron Odt [Zofran Odt] 4 mg PO Q8HR PRN #10 tab PRN Reason: Nausea Is patient prescribed a controlled substance at d/c from ED?: Yes When asked, does pt state using other controlled substances?: No If prescribed controlled substance>3 days was MAPS reviewed?: Prescribed <3 Days If opioid is for acute pain is fill amount 7 days or less?: Yes If Rx opioid, was Start Talking consent form obtained?: Yes Referrals: Santi Burr DO [Primary Care Provider] - 1-2 days Ezio Ray MD [STAFF PHYSICIAN] - 1-2 days Time of Disposition: 07:26
[2024-02-11] MEDS: SODIUM CHLORIDE 0.9% 500 ML 500 ML IV STA (06:30)
[2024-02-11] MEDS: SODIUM CHLORIDE 0.9% 1,000 ML IV STA (06:30)
[2024-02-11] MEDS: KETOROLAC 15 MG/ML 1 ML VIAL IVP STA ×2 (06:31→07:37)
[2024-02-11] MEDS: ONDANSETRON 4 MG/2 ML VIAL IVP STA (06:31)
[2024-02-11] MEDS: HYDROmorphone 0.5 MG/0.5 ML SYRINGE IVP STA ×2 (06:32→07:36)
[2024-02-11 06:52] LABS: Basophils # (A) 0.1 k/uL (0-0.2); Basophils % (A) 1 %; Eosinophils # (A) 0.1 k/uL (0-0.7); Eosinophils % (A) 1 %; HCT 49.5 % (39.0-53.0); HGB 16.5 gm/dL (13.0-17.5); Lymphocytes # (A) 0.8 k/uL (1.0-4.8); Lymphocytes % (A) 7 %; MCH 30.8 pg (25.0-35.0); MCHC 33.3 g/dL (31.0-37.0); MCV 92.5 fL (80.0-100.0); Mean Platelet Volume 7.4; Monocytes # (A) 0.4 k/uL (0-1.0); Monocytes % (A) 4 %; Neutrophils # (A) 9.9 k/uL (1.3-7.7); Neutrophils % (A) 88 %; Platelet Count 206 k/uL (150-450); RBC 5.35 m/uL (4.30-5.90); RDW 13.2 % (11.5-15.5); WBC 11.3 k/uL (3.8-10.6)
[2024-02-11 06:55] LABS: Appearance,Urine Clear (Clear); Bilirubin,Urine Negative (Negative); Blood,Urine Negative (Negative); Color,Urine Colorless; Glucose,Urine (UA) 1+ (Negative); Ketones,Urine Negative (Negative); Leukocyte Esterase,Urine Negative (Negative); Nitrite,Urine Negative (Negative); PH, Urine 6.5 (5.0-8.0); Protein,Urine Negative (Negative); Urobilinogen,Urine <2.0 mg/dL (<2.0)
--- NOTE | 2024-02-11 07:01 | CT ---
EXAMINATION TYPE: CT abdomen pelvis wo con DATE OF EXAM: 02/11/2024 COMPARISON: 09/09/2015 CLINICAL INDICATION: Male, 68 years old with history of right flank pain; PHH, right flank pain TECHNIQUE: CT scan of the abdomen and pelvis is performed without oral or IV contrast. CT DLP: 1055.[address] CTDI: mGy Automated exposure control for dose reduction was used. FINDINGS: Within the limitations of a non-contrast study, the following observations are made. The lungs are clear. There is mild to moderate cardiomegaly. There is surgical absence of the gallbladder. There is no biliary ductal dilatation. There is no organomegaly of the liver, pancreas, spleen or adrenal glands. There is marked right perinephric edema. There is mild to moderate right hydronephrosis secondary to a 6.3 mm obstructing calculus in the distal right ureter proximal to the right UVJ. There is a second nonobstructing 5.3 mm calculus in the right renal collecting system. There are no left renal calcifi cations or hydronephrosis. The caliber of the abdominal aorta is normal and there is no retroperitoneal adenopathy or hemorrhage . The bowel loops are normal in caliber is no evidence of obstruction. No inflammatory changes are iden tified in the mesentery and there is no free intraperitoneal air or fluid. There is no pelvic mass, free fluid, abscess or adenopathy. There is mild diverticulosis of the colon without CT evidence of diverticulitis. The osseous structures and soft tissues are unremarkable. IMPRESSION: Mild to moderate right hydronephrosis secondary to a 6.3 mm obstructing calculus in the distal right ureter proximal to the right UVJ. [facility], , 02/11/2024 6:59 AM
[2024-02-11 07:09] LABS: ALT 36 U/L (4-49); African American GFR (CKD) 65 (>60 ml/min/1.73 sqM); Albumin 4.8 g/dL (3.5-5.0); Anion Gap 11 mmol/L; Blood Urea Nitrogen 22 mg/dL (9-20); Carbon Dioxide 24 mmol/L (22-30); Chloride 105 mmol/L (98-107); Non-African American GFR(CKD) 56 (>60 ml/min/1.73 sqM); Sodium 140 mmol/L (137-145)
[2024-02-11 07:19] LABS: AST 38 U/L (17-59); Alkaline Phosphatase 135 U/L (38-126); Calcium 9.4 mg/dL (8.4-10.2); Glucose 184 mg/dL (74-99); Lipase 53 U/L (23-300); Potassium 3.6 mmol/L (3.5-5.1); Total Bilirubin 1.9 mg/dL (0.2-1.3); Total Protein 7.4 g/dL (6.3-8.2)
[2024-02-11] MEDS: TAMSULOSIN 0.4 MG CAP.ER.24H PO STA (07:39)
[2024-02-11 07:43] VITALS: BP 145/84; PULSE 80; RESP 20
== END 2024-02-11 07:48 | disposition home or self-care (01) ==
LOC: EC 05:46
DX: N13.2 Hydronephrosis with renal and ureteral calculous obstruction (principal)
CPT/HCPCS: 36415; 80053; 83690; 85025; 81003; 74176; 99284; 96374; 96375 ×2; 96376 ×2; 96361; J2405; J1885; J1171

== ENCOUNTER → 2024-02-16 | Outpatient (CLI) | payer MEDICARE ==
--- NOTE | 2024-02-16 13:08 | XR ---
EXAMINATION TYPE: XR KUB DATE OF EXAM: 02/16/2024 COMPARISON: CT abdomen and pelvis 02/11/2024 HISTORY: N20.1 calculus-ureter TECHNIQUE: Single supine KUB image of the abdomen is obtained FINDINGS: Small bowel demonstrates no evidence for dilatation or air fluid levels. Gas and fecal material is seen in non-distended colon. No convincing evidence for pneumoperitoneum. 3 mm calculus corresponding to the right renal inferior pole demonstrated. Previously seen distal ri ght ureteral calculus is not definitively visualized on today's exam. Cholecystectomy clips in the ri ght upper quadrant. The lung bases are clear. The osseous structures are intact. Mild osteoarthritic changes of both hips. Multilevel degenerative changes visualized spine. IMPRESSION: 1. Overall nonobstructive bowel gas pattern. 2. Previously seen distal right ureteral calculus is not definitively visualized on today's exam. 3. Right renal 3 mm calculus. [facility], , 02/16/2024 1:05 PM
== END | disposition home or self-care (01) ==
LOC: RADXRMAIN 12:37
PROVIDERS: ATTEND Urology
DX: N20.2 Calculus of kidney with calculus of ureter (principal)
CPT/HCPCS: 74018